=== PATIENT | female | born 1995 | race Caucasian/White ===

== ENCOUNTER → 2017-02-02 | Outpatient (CLI) | payer OTHER | LOC: GENOP 22:51 | DX: O99.89 Other specified diseases and conditions complicating pregnancy, childbirth and the puerperium (principal); M54.5 Low back pain; R10.9 Unspecified abdominal pain; Z3A.28 28 weeks gestation of pregnancy | CPT/HCPCS: 81001; 82731; G0463 ==

== ENCOUNTER 2017-02-21 14:46 | Outpatient (CLI) | payer OTHER ==
[2017-02-21 15:41] LABS: HEMOGLOBIN 10.5 gm/dl (12.3-15.3); RED BLOOD COUNT 3.3 M/UL (4.00-5.10); WHITE BLOOD COUNT 10.7 K/UL (4.5-11.0)
[2017-02-21 16:05] LABS: BUN/CREATININE RATIO 12 (0-10)
== END 2017-02-22 09:35 | disposition home or self-care (01) ==
LOC: GENOP 14:46 → OB 20:59 → GENOP 20:59 → OB 02-22 09:35 → GENOP 02-22 09:35
PROVIDERS: Obstetrics & Gynecology
DX: O26.893 Other specified pregnancy related conditions, third trimester (principal); E86.0 Dehydration; O21.2 Late vomiting of pregnancy; Z3A.31 31 weeks gestation of pregnancy; N39.0 Urinary tract infection, site not specified; R53.1 Weakness
CPT/HCPCS: 36415; 59025; 80053; 81001; 85025; 96360; 96361; 96367; 96374; J2405; J2550; J7120

== ENCOUNTER 2017-04-07 20:59 | Outpatient (CLI) | payer OTHER | END 2017-04-07 23:38 | disposition home or self-care (01) | LOC: GENOP 20:59 | DX: O47.1 False labor at or after 37 completed weeks of gestation (principal); M54.9 Dorsalgia, unspecified; R10.9 Unspecified abdominal pain; Z3A.37 37 weeks gestation of pregnancy | CPT/HCPCS: 81001; G0463 ==

== ENCOUNTER 2017-04-17 10:28 | Inpatient (IN) | payer OTHER ==
[2017-04-18 05:39] LABS: HEMOGLOBIN 10.4 gm/dl (12.3-15.3); RED BLOOD COUNT 3.57 M/UL (4.00-5.10); WHITE BLOOD COUNT 11.8 K/UL (4.5-11.0)
[2017-04-19 03:01] LABS: HEMOGLOBIN 9.3 gm/dl (12.3-15.3)
== END 2017-04-20 12:25 | disposition home or self-care (01) | DRG 774 ==
LOC: GENOP 10:28 → OB 12:09
PROVIDERS: Obstetrics & Gynecology; ADMIT Obstetrics & Gynecology
PROC: 10E0XZZ Delivery of Products of Conception, External Approach (ICD-10-PCS; principal; 2017-04-18)
PROC: 0HQ9XZZ Repair Perineum Skin, External Approach (ICD-10-PCS; 2017-04-18)
PROC: 10907ZC Drainage of Amniotic Fluid, Therapeutic from Products of Conception, Via Natural or Artificial Opening (ICD-10-PCS; 2017-04-18)
PROC: 3E0R3CZ (ICD-10-PCS; 2017-04-18)
PROC: 3E0234Z Introduction of Serum, Toxoid and Vaccine into Muscle, Percutaneous Approach (ICD-10-PCS; 2017-04-19)
DX: O99.89 Other specified diseases and conditions complicating pregnancy, childbirth and the puerperium (principal); O90.89 Other complications of the puerperium, not elsewhere classified; M54.9 Dorsalgia, unspecified; O99.214 Obesity complicating childbirth; E66.9 Obesity, unspecified; Z68.31 Body mass index [BMI] 31.0-31.9, adult; O70.0 First degree perineal laceration during delivery; N90.89 Other specified noninflammatory disorders of vulva and perineum; Z3A.39 39 weeks gestation of pregnancy; Z37.0 Single live birth; Z23 Encounter for immunization; Z86.19 Personal history of other infectious and parasitic diseases; Z83.3 Family history of diabetes mellitus; Z82.49 Family history of ischemic heart disease and other diseases of the circulatory system; Z80.9 Family history of malignant neoplasm, unspecified; Z82.0 Family history of epilepsy and other diseases of the nervous system
CPT/HCPCS: 36415; 51702; 81001; 82800; 83518; 85014; 85018; 85025; 90715; J2405; J2590; J2795; J3010; J3430; J7120; Q0162